=== PATIENT | female | born 2000 | race Caucasian/White ===

== ENCOUNTER 2022-08-01 08:00 | Outpatient (CLI) | payer MEDICAID ==
[2022-08-01 16:30] LABS: BILIRUBIN,URINE NEGATIVE (NEGATIVE); GLUCOSE, URINE (UA) NEGATIVE (NEGATIVE); KETONES,URINE (UA) NEGATIVE (NEGATIVE); LEUKOCYTE ESTERASE, URINE NEGATIVE (NEGATIVE); NITRITE,URINE NEGATIVE (NEGATIVE); OCCULT BLOOD,URINE NEGATIVE (NEGATIVE); PROTEIN,URINE NEGATIVE (NEGATIVE); UROBILINOGEN,URINE 0.2 (NORMAL) E.U./dL (NORMAL)
[2022-08-01 16:31] LABS: CLARITY,URINE CLEAR (CLEAR)
[2022-08-01 16:50] LABS: BACTERIA,URINE Few /HPF (None Seen); RBC,URINE 0-5 /HPF (0-5); SQUAMOUS EPITHELIAL CELL,UR MOD Squamous (<= Few); WBC,URINE 0-3 /HPF (0-5)
== END 2022-08-01 23:59 | disposition home or self-care (01) ==
LOC: LAB.WC 08:00
PROVIDERS: ATTEND Nurse Practitioner
DX: Z34.90 Encounter for supervision of normal pregnancy, unspecified, unspecified trimester (principal)
CPT/HCPCS: 81001; 87086

== ENCOUNTER 2022-08-01 12:38 | Outpatient (CLI) | payer MEDICAID ==
[2022-08-01 12:59] LABS: BASOPHILS # (AUTO) 0.1 10^3/uL (0.0-0.1); BASOPHILS % (AUTO) 0.5 %; EOSINOPHILS # (AUTO) 0.1 10^3/uL (0.0-0.7); EOSINOPHILS % (AUTO) 0.9 %; HCT - HEMATOCRIT 36.7 % (37.0-47.0); HGB - HEMOGLOBIN 12.6 g/dL (12.0-16.0); LYMPHOCYTES # (AUTO) 1.6 10^3/uL (1.5-3.5); LYMPHOCYTES % (AUTO) 15.2 %; MEAN CORPUSCULAR HEMOGLOBIN 29.9 pg (27.0-31.0); MEAN CORPUSCULAR HGB CONC 34.3 g/dL (32.0-36.0); MEAN PLATELET VOLUME 10.9 fL (7.9-10.8); MONOCYTES # (AUTO) 0.8 10^3/uL (0.0-1.0); MONOCYTES % (AUTO) 7.1 %; NEUTROPHILS % (AUTO) 75.7 %; PLT - PLATELET COUNT 268 10^3/uL (130-450); RED BLOOD COUNT 4.22 10^6/uL (4.20-5.40); WHITE BLOOD COUNT 10.5 x10^3/uL (4.8-10.8)
[2022-08-02 04:09] LABS: HBsAG SCREEN Negative (Negative); RPR Non Reactive (Non Reactive)
[2022-08-02 05:09] LABS: HCV AB <0.1 s/co ratio (0.0-0.9)
[2022-08-02 08:09] LABS: VARICELLA-ZOSTER AB IGG <135 index (Immune >165)
[2022-08-03 06:08] LABS: HIV SCREEN 4TH GENERATION Non Reactive (Non Reactive)
== END 2022-08-01 12:39 | disposition home or self-care (01) ==
LOC: LAB 12:38
PROVIDERS: ATTEND Nurse Practitioner
DX: Z34.90 Encounter for supervision of normal pregnancy, unspecified, unspecified trimester (principal)
CPT/HCPCS: 36415; 85025; 86592; 86762; 86787; 86803; 86850; 86900; 86901; 87340; 87389

== ENCOUNTER 2022-09-05 19:45 | Outpatient (CLI) | payer MEDICAID ==
[2022-09-05 20:06] VITALS: BP 105/60
--- NOTE | 2022-09-05 20:52 | HISTORY & PHYSICAL EXAMINATION ---
Admit History - Visit Reason Visit Reason: Bleeding - mild - : 1 Parity: 0 Care: positive: IW (Patient has only had one appointment. She no showed anatomy ultrasound and follow-up.) Risk/History: positive: No care (patient has had one appointment) - Mother's Labs Mother's RH: positive: Positive Review of Systems - Gastrointestinal Gastrointestinal: denies: Abdominal pain - Genitourinary Genitourinary: denies: Dysuria - All Other Systems All Other Systems: reports: Reviewed and negative Physical - Abdominal Exam Vital Signs: Temp Pulse Resp BP Pulse Ox O2 Flow Rate 98.1 F 88 16 105/60 09/05/22 20:01 09/05/22 20:01 09/05/22 20:01 09/05/22 20:01 - Monitoring Heart Rate Baseline: heart tones: 140 - Presentation Presentation: positive: Vertex - Vaginal Exam Membranes: positive: Membranes intact - Other Notes Labor Progress Note/Additional Text: Bedside ultrasound: cephalic presentation, anterior placenta away from cervix, heart tones 140 femur length ~24 weeks Speculum exam: no vaginal bleeding, normal appearing cervix, closed on exam Plan for Labor - Plan For Labor Plan for Labor: Patient is a 21 yo within unknown LMP and gestational age. Patient had one appointment at about 18 weeks. She has not presented for follow up appointments or to schedule her anatomy ultrasound. She presented with vaginal bleeding after intercourse. No bleeding on exam. Bedside ultrasound is normal with no evidence of previa. 1. vaginal bleeding in 2nd trimester -secondary to intercourse, resolved - wellbeing is reassuring- too early for NST 2. limited care -counseled patient to call the office on Thursday and schedule anatomy ultrasound and appointment. Patient is going to senior living 10[facility]06/21. Advised that it is important to have ultrasound done prior to this time and likely will need 28 weeks labs prior to incarceration. Advised patient to return for abdominal pain, vaginal bleeding, leakage of fluid or any other concerns.
== END 2022-09-05 21:05 | disposition home or self-care (01) ==
LOC: WFO 19:45 → FBP 19:49 → WFO 21:05
PROVIDERS: ATTEND Obstetrics & Gynecology Obstetrics
DX: O46.8X2 Other antepartum hemorrhage, second trimester (principal)
CPT/HCPCS: 99213; 99214

== ENCOUNTER 2022-09-12 08:00 | Outpatient (CLI) | payer MEDICAID ==
[2022-09-12 23:56] LABS: CHLAMYDIA TRACHOMATIS DNA NEGATIVE (NEGATIVE); NEISSERIA GONORRHOEAE DNA NEGATIVE (NEGATIVE); TRICHOMONAS VAGINALIS DNA NEGATIVE (NEGATIVE)
== END 2022-09-12 23:59 | disposition home or self-care (01) ==
LOC: LAB.WC 08:00
PROVIDERS: ATTEND Obstetrics & Gynecology
DX: Z34.90 Encounter for supervision of normal pregnancy, unspecified, unspecified trimester (principal)
CPT/HCPCS: 87491; 87591; 87661

== ENCOUNTER 2022-09-25 13:07 | Outpatient (CLI) | payer MEDICAID ==
--- NOTE | 2022-09-26 10:10 | Ultrasound Report ---
PROCEDURE: OB Detailed Eval INDICATIONS: SUPERVISION OF OUTSIDE/PRIOR DATING DATA: Last menstrual period (LMP): Unknown. LMP-based estimated date of delivery (TRUDY): Unknown. First dating scan (date and location): 09/25/2022. Estimated date of delivery (TRUDY) from first dating scan: 01/02/2023. The below data below was generated using the study generated TRUDY of 01/02/2023 TECHNIQUE: Real-time scanning was performed of the fetus, with image documentation and biometric measurements. Endovaginal scanning: Not indicated COMPARISON: None. FINDINGS: General: A single living intrauterine gestation is present. Presentation: Vertex Placenta: Placental position is anterior, without previa. Amniotic fluid index: 14.2 cm, normal for gestational age. heart rate: 158 beats per minute. Maternal cervical canal: 4.8 cm long and is closed; normal length is 2.5 cm or more. biometrics: Biparietal diameter: 6.2 cm, 25 weeks, 2 days. Head circumference: 23.78 cm, 25 weeks, 6 days. Abdominal circumference: 22.6 cm, 27 weeks, 0 day. Femur length: 4.48 cm, 24 weeks, 5 days. Estimated gestational age from initial scan: not applicable. Composite gestational age from present scan: 25 weeks, 6 days Estimated weight and percentile: 882.6 g. Measurement variability in biometric dating: +/- 10 days from 12-20 weeks gestation, +/- 2 weeks from 20-30 weeks gestation, +/- 3 weeks at 30 weeks gestation or later. Anatomic survey: Neuro: Ventricles are normal at less than 10 mm. Cisterna magna is normal at 3-11 mm. Cerebellum i s normal in size and morphology. Nuchal skin fold: Normal at less than 6 mm between 14 and 20 weeks gestational age. Face: Nose and lips, facial profile are not well seen due to position. Spine: No evidence for spina bifida. Heart: 4-chambered heart is present, with normal ventricular outflow tracts. Diaphragm: Diaphragm is intact. Stomach: Left-sided stomach is present. Kidneys: No hydronephrosis. Normal is less than 5 mm in 2nd trimester, less than 7 mm in 3rd trimester. Cord: 3 vessel cord has orthotopic insertion. Bladder: Normal in size. Extremities: All 4 extremities are visualized. IMPRESSION: 1. Single live intrauterine gestation with fetus in vertex presentation. heart rate is 158 bpm. Normal amount of amniotic fluid. Estimated gestational age is 25 weeks, 6 days. Estimated weig ht is at 882.6 g. 2. Facial profile is suboptimally seen due to position. Rest of the anatomic survey is wi thin normal limits. Reviewed by: James Maldonado MD on 09/26/2022 10:08 AM [facility] Approved by: James Maldonado MD on 09/26/2022 10:08 AM PST Station ID: [id number]
== END 2022-09-25 13:08 | disposition home or self-care (01) ==
LOC: DI 13:07
PROVIDERS: ATTEND Nurse Practitioner
DX: Z34.92 Encounter for supervision of normal pregnancy, unspecified, second trimester (principal)

== ENCOUNTER 2022-12-18 15:20 | Outpatient (CLI) | payer MEDICAID ==
[2022-12-18 15:42] VITALS: BP 104/71
--- NOTE | 2022-12-18 16:48 | PROVIDER PROGRESS NOTE ---
- HPI Chief Complaint: Other ( tachycardia in clinic) Current : Vital Signs Temperature 98.8 F 12/18/22 15:29 Heart Rate 100 12/18/22 15:29 Respiratory Rate 16 12/18/22 15:29 Blood Pressure 104/71 12/18/22 15:29 Temperature 98.8 F 12/18/22 15:29 Heart Rate 100 12/18/22 15:29 Respiratory Rate 16 12/18/22 15:29 Blood Pressure 104/71 12/18/22 15:29 O2 Saturation If not protocol: Oxygen Flow, liters/minute - Procedures OB Procedure Performed: NST NST Procedure: NST Procedure Start Date 12/18/22 Start Time 16:20 Stop Time 16:45 Vibroacoustic Stimulation Used No Patient States Movement Yes FHT: 130 beats per baseline, regularly, accelerations present, no decelerations. Reactive NST. [place]: Occasional irritability, no contractions Service Date of procedure: 12/18/22 (Read 12/18/22) - Plan Plan: Patient is a 22-year-old G1, P0 at 37 weeks 6 days gestation presenting to triage for tachycardia in clinic. She has good movement, no leaking, no vaginal bleeding. She denies headache, right upper quadrant pain, changes in vision. Patient has history of insufficient care due to incarceration. Physical Exam Constitutional: alert, no acute distress, well hydrated, well developed, well nourished, appropriate dress. Cardiovascular: Regular rate and rhythm. Respiratory: no respiratory distress. Abdomen: nondistended, nontender, no guarding. Psych: affect and mood appropriate, normal interaction, good eye contact. Assessment and plan 22-year-old at 37 weeks 6 days gestation with tachycardia. 1. tachycardia - tachycardia from clinic is no longer present. This is reactive and moving well. 2. History of incarceration 3. Limited care 4. 37 weeks gestation -Due for routine GC/CT screen 5. Uterine irritability -UA collected. Will follow up outpatient.
[2022-12-18 17:32] LABS: BILIRUBIN,URINE NEGATIVE (NEGATIVE); GLUCOSE, URINE (UA) NEGATIVE (NEGATIVE); KETONES,URINE (UA) NEGATIVE (NEGATIVE); LEUKOCYTE ESTERASE, URINE TRACE (NEGATIVE); NITRITE,URINE NEGATIVE (NEGATIVE); OCCULT BLOOD,URINE NEGATIVE (NEGATIVE); PH,URINE 6.5 PH (5.0-7.5); PROTEIN,URINE TRACE mg/dL (NEGATIVE); UROBILINOGEN,URINE 0.2 (NORMAL) E.U./dL (NORMAL)
[2022-12-18 17:41] LABS: BACTERIA,URINE Many /HPF (None Seen); CLARITY,URINE HAZY (CLEAR); MUCUS,URINE Few Strands; RBC,URINE 0-5 /HPF (0-5); SQUAMOUS EPITHELIAL CELL,UR MANY Squamous (<= Few)
[2022-12-19 00:31] LABS: CHLAMYDIA TRACHOMATIS DNA NEGATIVE (NEGATIVE); NEISSERIA GONORRHOEAE DNA NEGATIVE (NEGATIVE); TRICHOMONAS VAGINALIS DNA NEGATIVE (NEGATIVE)
== END 2022-12-18 16:50 | disposition home or self-care (01) ==
LOC: WFO 15:20 → FBP 15:22 → WFO 16:50
PROVIDERS: ATTEND Obstetrics & Gynecology
DX: O36.8330 Maternal care for abnormalities of the fetal heart rate or rhythm, third trimester, not applicable or unspecified (principal); O99.891 Other specified diseases and conditions complicating pregnancy; N85.9 Noninflammatory disorder of uterus, unspecified; Z3A.37 37 weeks gestation of pregnancy
CPT/HCPCS: 59025; 81001; 87086; 87491; 87591; 87661; 99215

== ENCOUNTER 2022-12-19 14:30 | Outpatient (CLI) | payer MEDICAID | END 2022-12-19 23:59 | disposition home or self-care (01) | LOC: LAB.R 14:30 | PROVIDERS: ATTEND Obstetrics & Gynecology | DX: Z36.85 Encounter for antenatal screening for Streptococcus B (principal) | CPT/HCPCS: 87797 ==

== ENCOUNTER 2022-12-26 13:50 | Inpatient (IN) | payer MEDICAID ==
[2022-12-26] MEDS ORDERED: SODIUM CHLORIDE FLUSH 0.9% 10 ML SYRINGE IVP PRN (14:31)
[2022-12-26] MEDS ORDERED: miSOPROStoL 200 MCG TABLET BC PRN (14:31)
[2022-12-26] MEDS ORDERED: CARBOPROST TROMETHAMINE 250 MCG/ML AMP IM PRN (14:31)
[2022-12-26] MEDS ORDERED: hydrALAZINE INJ 20 MG/ML VIAL IVP PRN ×2 (14:31)
[2022-12-26] MEDS ORDERED: OXYTOCIN 10 UNIT/ML VIAL IM PRN (14:31)
[2022-12-26] MEDS ORDERED: TRANEXAMIC ACID IN NACL 1,000 MG/100 ML BAG IV PRN (14:31)
[2022-12-26] MEDS ORDERED: NIFEdipine 10 MG CAPSULE PO PRN (14:31)
[2022-12-26] MEDS ORDERED: fentaNYL 100 MCG/2 ML VIAL IVP PRN (14:31)
[2022-12-26] MEDS ORDERED: LABETALOL 20 MG/4 ML SYRINGE IVP PRN ×3 (14:31)
[2022-12-26] MEDS ORDERED: METHYLERGONOVINE 0.2 MG/ML VIAL IM PRN (14:31)
[2022-12-26] MEDS ORDERED: OXYTOCIN/SODIUM CHLORIDE 500 ML IV PRN (14:31)
[2022-12-26] MEDS ORDERED: miSOPROStoL 200 MCG TABLET PR PRN (14:31)
[2022-12-26] MEDS ORDERED: lidocaine 1% 20 ML MDV ID PRN (14:31)
--- NOTE | 2022-12-26 14:38 | HISTORY & PHYSICAL EXAMINATION ---
Admit History - Visit Reason Visit Reason: Contractions - : 1 Parity: 0 Care: positive: [facility] Risk/History: positive: Other (insufficient care) Complications This : positive: Maternal drug use (marijuana) - Mother's Labs Mother's Blood Type: positive: O Mother's RH: positive: Negative GBS: positive: Group B Step Negative Rubella Status: positive: Immune Meds/Allgy - Allergies Allergies/Adverse Reactions: Allergies Allergy/AdvReac Type Severity Reaction Status Date / Time No Known Drug Allergies Allergy Verified 09/05/22 21:03 Review of Systems - Cardiovascular Cariovascular: denies: Chest pain - All Other Systems All Other Systems: reports: Reviewed and negative Physical - Abdominal Exam Vital Signs: Temp Pulse Resp BP Pulse Ox O2 Flow Rate 98.2 F 67 18 126/76 12/26/22 14:05 12/26/22 14:05 12/26/22 14:05 12/26/22 14:05 Contraction Frequency (min/apart): contractions every 3-5 minutes Contraction Intensity: positive: Moderate to strong Uterine Resting Tone: positive: Soft - Monitoring Strip Review: positive: Category I - Presentation Presentation: positive: Vertex - Vaginal Exam Membranes: positive: Membranes intact Dilation (in cm): 4 Effacement (%): 50 Station: positive: -2 Cervical Position: positive: Midposition - Speculum Exam Speculum Exam Performed: positive: No Plan for Labor - Plan For Labor Plan for Labor: 1. admit to labor and delivery for management of labor 2. discussion labor management and pain management, all questions answered
[2022-12-26] MEDS ORDERED: ONDANSETRON 4 MG/2 ML VIAL IVP PRN ×2 (14:43→16:57)
[2022-12-26] MEDS ORDERED: SODIUM CHLORIDE FLUSH 0.9% 10 ML SYRINGE IVP SCH (15:00)
[2022-12-26] MEDS ORDERED: LACTATED RINGERS 1,000 ML ONE ×2 (15:17→22:05)
[2022-12-26] MEDS ORDERED: LACTATED RINGERS 500 ML IV ONE (16:00)
[2022-12-26 16:06] LABS: BASOPHILS # (AUTO) 0.1 10^3/uL (0.0-0.1); BASOPHILS % (AUTO) 0.7 %; EOSINOPHILS # (AUTO) 0.1 10^3/uL (0.0-0.7); EOSINOPHILS % (AUTO) 1.4 %; HGB - HEMOGLOBIN 10.7 g/dL (12.0-16.0); LYMPHOCYTES # (AUTO) 1.4 10^3/uL (1.5-3.5); LYMPHOCYTES % (AUTO) 14.7 %; MEAN CORPUSCULAR HEMOGLOBIN 24.5 pg (27.0-31.0); MEAN CORPUSCULAR HGB CONC 31.5 g/dL (32.0-36.0); MEAN CORPUSCULAR VOLUME 77.8 fL (81.0-99.0); MONOCYTES # (AUTO) 0.9 10^3/uL (0.0-1.0); MONOCYTES % (AUTO) 9.7 %; NEUTROPHILS # (AUTO) 6.8 10^3/uL (1.5-6.6); NEUTROPHILS % (AUTO) 71.5 %; PLT - PLATELET COUNT 133 10^3/uL (130-450); RED BLOOD COUNT 4.37 10^6/uL (4.20-5.40); RED CELL DISTRIBUTION WIDTH 14.4 % (12.0-15.0); WHITE BLOOD COUNT 9.5 x10^3/uL (4.8-10.8)
[2022-12-26] MEDS ORDERED: ROPIVACAINE 0.2% 200 MG/100 ML BAG EP ONE (16:10)
[2022-12-26] MEDS ORDERED: LIDOCAINE MPF 2%-EPI 1:200000 20 ML VIAL ONE (16:22)
[2022-12-26] MEDS ORDERED: ePHEDrine 50 MG/ML VIAL IVP PRN (16:57)
[2022-12-26] MEDS ORDERED: METOCLOPRAMIDE 10 MG/2 ML VIAL IVP PRN (16:57)
[2022-12-26] MEDS ORDERED: NALOXONE 0.4 MG/ML VIAL IVP PRN (16:57)
[2022-12-26] MEDS ORDERED: diphenhydrAMINE INJ 50 MG/ML VIAL IVP PRN (16:57)
[2022-12-26] MEDS ORDERED: NALBUPHINE 10 MG/ML AMP IVP PRN (16:57)
[2022-12-26] MEDS ORDERED: LACTATED RINGERS 1,000 ML IV SCH ×2 (17:00→23:45)
--- NOTE | 2022-12-26 17:00 | ANESTHESIA ---
Pre-Anesthesia VS, & Labs - Diagnosis active labor - Procedure labor epidural Vital Signs: Temp Pulse Resp BP Pulse Ox O2 Flow Rate 36.8 C 67 18 126/76 12/26/22 14:53 12/26/22 14:05 12/26/22 14:05 12/26/22 14:05 Height: 5 ft 7 in Weight (kg): 74.843 kg Body Mass Index: 25.8 BMI Classification: Overweight - NPO Other - Is Patient ?: Yes - Lab Results Current Lab Results: Laboratory Tests 12/26/22 15:40: WBC 9.5, RBC 4.37, Hgb 10.7 L, Hct 34.0 L, MCV 77.8 L, MCH 24.5 L, MCHC 31.5 L, RDW 14.4, Plt Count 133, Neut # (Auto) 6.8 H, Lymph # (Auto) 1.4 L, [place] # (Auto) 0.9, Eos # (Auto) 0.1, Baso # (Auto) 0.1, Absolute Nucleated RBC 0.00, Nucleated RBC % 0.0 12/26/22 15:40: Blood Type O NEGATIVE, Antibody Screen POSITIVE Fish Bones: 12/26/22 15:40 Home Medications and Allergies Active Medications Carboprost Tromethamine (Carboprost Tromethamine 250 Mcg/Ml Amp) 250 mcg IM .ONCE PRN PRN Reason: Hemorrhage Fentanyl (Fentanyl 100 Mcg/2 Ml Vial) 50 mcg IVP Q1H PRN PRN Reason: Severe Pain (score 7-10) Hydralazine HCl (Hydralazine Inj 20 Mg/Ml Vial) 5 - 10 mg IVP Q20M PRN; Pro tocol PRN Reason: SBP> or= 160 OR DBP> or= 110 Hydralazine HCl (Hydralazine Inj 20 Mg/Ml Vial) 10 mg IVP .ONCE PRN; Protocol PRN Reason: SBP> or= 160 OR DBP> or= 110 Oxytocin/Sodium Chloride (Pitocin/Sodium Chloride) 500 mls @ 999 mls/hr IV PRN PRN; Protocol PRN Reason: POST- HEMORR PREVENTION Tranexamic Acid (Tranexamic 1,000 Mg/100ml-Nacl) 1,000 mg in 100 mls @ 600 mls/hr IV Q30M PRN PRN Reason: EBL >1200mL and within 3hr Labetalol HCl (Labetalol 20 Mg/4 Ml Syringe) 20 - 80 mg IVP Q10M PRN; Protocol PRN Reason: SBP> or= 160 OR DBP> or= 110 Labetalol HCl (Labetalol 20 Mg/4 Ml Syringe) 20 mg IVP .ONCE PRN; Protocol PRN Reason: SBP> or= 160 OR DBP> or= 110 Labetalol HCl (Labetalol 20 Mg/4 Ml Syringe) 20 - 40 mg IVP Q10M PRN; Protocol PRN Reason: SBP> or= 160 OR DBP> or= 110 Lidocaine HCl (Lidocaine 1% 20 Ml Mdv) 20 ml ID .ONCE PRN PRN Reason: PERINEAL REPAIR Stop: 12/29/22 14:31 Methylergonovine Maleate (Methylergonovine 0.2 Mg/Ml Vial) 0.2 mg IM .ONCE PRN PRN Reason: Hemorrhage Misoprostol (Misoprostol 200 Mcg Tablet) 600 mcg BC .ONCE PRN PRN Reason: Hemorrhage Misoprostol (Misoprostol 200 Mcg Tablet) 800 mcg MT .ONCE PRN PRN Reason: Hemorrhage Nifedipine (Nifedipine 10 Mg Capsule) 10 - 20 mg PO Q20M PRN; Protocol PRN Reason: SBP> or= 160 OR DBP> or= 110 Ondansetron HCl (Ondansetron 4 Mg/2 Ml Vial) 4 mg IVP Q4HR PRN PRN Reason: Nausea / Vomiting Oxytocin (Oxytocin 10 Unit/Ml Vial) 10 unit IM .ONCE PRN PRN Reason: Step One if no IV access. Sodium Chloride (Sodium Chloride Flush 0.9% 10 Ml Syringe) 10 ml IVP PRN PRN PRN Reason: NEEDED PER PROVIDER ORDERS Sodium Chloride (Sodium Chloride Flush 0.9% 10 Ml Syringe) 10 ml IVP Q8H [facility] Allergies/Adverse Reactions: Allergies Allergy/AdvReac Type Severity Reaction Status Date / Time No Known Drug Allergies Allergy Verified 09/05/22 21:03 Anes History & Medical History - Anesthetic History Anesthesia Complications: reports: No previous complications Family history of Anesthesia Complications: Denies Family history of Malignant Hyperthermia: Denies - Medical History Pulmonary: reports: Asthma Musculoskeletal: reports: Scoliosis Smoking Status: Former smoker Psychosocial: reports: Cannabis History of Cancer?: No - Obstetrical History : 1 Parity: 0 Events: reports: Other (insufficient care) Complications: reports: Maternal drug use (marijuana) Exam General: Alert, Oriented x3, Cooperative, Moderate distress Dental: WNL Mouth Openin Fingerbreadth Neck Mobility: Normal Mallampati classification: I Thyromental Distance: 4-6 cm Respiratory: Lungs clear Cardiovascular: Regular rate Plan Anesthesia Type: Epidural Consent for Procedure(s) Verified and Reviewed: Yes Code Status: Attempt Resuscitation ASA classification: 3-Severe systemic disease Is this case an emergency?: No
--- NOTE | 2022-12-26 17:30 | PROVIDER PROGRESS NOTE ---
Labor Progress Note - Uterine Monitoring Uterine Monitoring Mode: positive: External toco Contraction Frequency (min/apart): every 3-4 minutes Contraction Intensity: positive: Strong - Monitoring Monitor Mode: positive: External ultrasound Heart Rate Variability: positive: Moderate (6-25 bmp) Accelerations: positive: Present, 15x15 Decelerations: positive: None Strip Review: positive: Category I - Vaginal Exam Dilation (in cm): 7 Effacement (%): 80 Station: -2 (AROM with clear fluid. Patient comfortable with epidural)
[2022-12-26 20:27] LABS: MUDS CUTOFF CONCENTRATIONS CUTOFF CONC BELOW:
[2022-12-26 20:42] LABS: AMPHETAMINE SCREEN,URINE NEGATIVE (NEGATIVE); BARBITURATE SCREEN,UR NEGATIVE (NEGATIVE); BENZODIAZEPINES SCREEN, URINE NEGATIVE (NEGATIVE); COCAINE SCREEN URINE NEGATIVE (NEGATIVE); METHADONE SCREEN, URINE NEGATIVE (NEGATIVE); METHAMPHETAMINES SCREEN, URINE NEGATIVE (NEGATIVE); OPIATE SCREEN, URINE NEGATIVE (NEGATIVE); OXYCODONE SCREEN, URINE NEGATIVE (NEGATIVE); PROPOXYPHENE SCREEN, URINE NEGATIVE (NEGATIVE); THC CANNABINOID SCREEN, URINE POSITIVE (NEGATIVE); TRICYCLIC ANTIDEPRESSANT,URINE NEGATIVE (NEGATIVE)
--- NOTE | 2022-12-26 23:08 | DELIVERY NOTE ---
Delivery Note - Labor Labor: positive: Spontaneous - Delivery Method Delivery Method: positive: Spontaneous vaginal delivery - Presentation Presentation: positive: Vertex - Nuchal Cord Nuchal Cord: positive: None - Anesthetic Anesthetic Type: - Amniotic Fluid Description Amniotic Fluid Description: positive: Moderate meconium - Episiotomy Type Episiotomy Type: positive: None - Laceration Laceration: positive: 1st degree (superficial skid pedro repaired with 3-0 vicryl) - Suture Suture Type: positive: Vicryl Suture Size: positive: 3-0 - Delivery Outcome Delivery Outcome: positive: Livebirth - : positive: Placed in direct skin contact with mother, Suctioned, Bulb syringe, Stimulated, Warmed, [place] used [place] sex: positive: Female - Cord Cord: positive: 3 vessels - Placenta Placenta: positive: Intact, Spontaneous - Estimated Blood Loss Estimated Blood Loss (in cc): 150 - Post Delivery Events Post Delivery Events: positive: No post delivery events
[2022-12-27] MEDS: IBUPROFEN 800 MG TABLET PO SCH ×5 (02:40→22:51)
[2022-12-27] MEDS ORDERED: WITCH HAZEL/GLYCERIN 1 PAD TOP PRN (02:51)
[2022-12-27] MEDS: ACETAMINOPHEN 500 MG TABLET PO SCH ×2 (08:33→16:46)
[2022-12-27] MEDS: DOCUSATE SODIUM 100 MG CAPSULE PO SCH ×2 (08:34→22:52)
--- NOTE | 2022-12-27 11:08 | PROVIDER PROGRESS NOTE ---
Subjective - Prog Note Date Prog Note Date: 12/27/22 Prog Note Time: 11:06 - Subjective Pt reports feeling: Improved Subjective: Patient doing well this morning. Lochia < menses. Ambulating, tolerating regular diet. Spontaneously voiding. Objective - Vital Signs/Intake & Output Reviewed Vital Signs: Yes Vital Signs: Vital Signs x48h Temp Pulse Resp BP 12/27/22 07:56 98.4 F 59 L 16 131/87 H Intake & Output: Intake & Output 12/24/22 12/25/22 12/26/22 12/27/22 23:59 23:59 23:59 23:59 Intake Total 858.183 87.5 Output Total 625 631 Balance 233.183 -543.5 - Objective General Appearance: positive: No acute distress Eyes Bilateral: positive: Normal inspection Respiratory: positive: Breath sounds nml Cardiovascular: positive: Regular rate & rhythm Abdomen: positive: Non-tender (firm fundus below umbilicus) Skin: positive: Color nml Extremities: positive: Non-tender, Pedal edema (trace) - Lab Results Fish Bones: 12/26/22 15:40 Other Labs: Lab Results x24hrs 12/26/22 12/26/22 12/26/22 Range/Units 20:05 15:40 15:40 WBC 9.5 (4.8-10.8) x10^3/uL RBC 4.37 (4.20-5.40) 10^6/uL Hgb 10.7 L (12.0-16.0) g/dL Hct 34.0 L (37.0-47.0) % MCV 77.8 L (81.0-99.0) fL MCH 24.5 L (27.0-31.0) pg MCHC 31.5 L (32.0-36.0) g/dL RDW 14.4 (12.0-15.0) % Plt Count 133 (130-450) 10^3/uL Neut # (Auto) 6.8 H (1.5-6.6) 10^3/uL Lymph # (Auto) 1.4 L (1.5-3.5) 10^3/uL [place] # (Auto) 0.9 (0.0-1.0) 10^3/uL Eos # (Auto) 0.1 (0.0-0.7) 10^3/uL Baso # (Auto) 0.1 (0.0-0.1) 10^3/uL Absolute Nucleated RBC 0.00 x10^3/uL Nucleated RBC % 0.0 /100WBC Urine Opiates Screen NEGATIVE (NEGATIVE) Ur Oxycodone Screen NEGATIVE (NEGATIVE) Urine Methadone Screen NEGATIVE (NEGATIVE) Ur Propoxyphene Screen NEGATIVE (NEGATIVE) Ur Barbiturates Screen NEGATIVE (NEGATIVE) Ur Tricyclics Screen NEGATIVE (NEGATIVE) Ur Phencyclidine Scrn NEGATIVE (NEGATIVE) Ur Amphetamine Screen NEGATIVE (NEGATIVE) U Methamphetamines Scrn NEGATIVE (NEGATIVE) U Benzodiazepines Scrn NEGATIVE (NEGATIVE) Urine Cocaine Screen NEGATIVE (NEGATIVE) U Cannabinoids Screen POSITIVE H (NEGATIVE) Blood Type O NEGATIVE Antibody Screen POSITIVE Antibody Identification See Comments SHELLY, IgG Specific TNP SHELLY, Polyspecific NEGATIVE SHELLY, C3d Specific TNP Crossmatch See Detail Assessment/Plan - Problem List (1) Vaginal delivery Impression: PPD#1 Uncomplicated course RH negative, follow up on baby's blood type Anticipate home tomorrow.
[2022-12-28] MEDS: ACETAMINOPHEN 500 MG TABLET PO SCH ×2 (00:46→09:04)
[2022-12-28] MEDS: IBUPROFEN 800 MG TABLET PO SCH ×2 (04:43→10:51)
[2022-12-28] MEDS: DOCUSATE SODIUM 100 MG CAPSULE PO SCH (09:04)
[2022-12-28 09:18] VITALS: BP 134/79
--- NOTE | 2022-12-28 09:54 | Discharge Plan ---
Discharge Plan Problem Reviewed?: Yes Disposition: Home, Self Care Diet: Regular Activity Restrictions: pelvic rest for 6 weeks No Smoking: If you smoke, Please STOP! Call for help. Follow-up with: Melisa Pino MD [Primary Care Provider] -
--- NOTE | 2022-12-28 09:56 | DISCHARGE SUMMARY ---
Discharge Summary Admit Date: 12/26/22 Discharge Date: 12/28/22 Discharging Provider: Odette Primary Care Provider: Jonny Code Status: Attempt Resuscitation Discharge Disposition: 01 Home, Self Care - DIAGNOSES Admission Diagnoses: Full term , in labor - HPI History of Present Illness: Patient presented in labor. She was given an epidural for pain management. Patient had an uncomplicated and an uncomplicated course and was discharged to home on PPD#2. - HOSPITAL COURSE Hospital Course: Patient presented in labor. She had an uncomplicated and an uncomplicated course and was discharged to home on PPD#2 - ALLERGIES Allergies/Adverse Reactions: Allergies Allergy/AdvReac Type Severity Reaction Status Date / Time No Known Drug Allergies Allergy Verified 09/05/22 21:03 - PHYSICAL EXAM AT DISCHARGE General Appearance: positive: No acute distress Respiratory: positive: Breath sounds nml Cardiovascular: positive: Regular rate & rhythm Abdomen: positive: Non-tender (firm fundus below umbilicus) Skin: positive: Color nml - LABS Result Diagrams: 12/26/22 15:40 - FOLLOW UP Follow Up: Follow up with Dr. Fuller on
--- NOTE | 2022-12-28 09:59 | PROVIDER PROGRESS NOTE ---
Subjective - Prog Note Date Prog Note Date: 12/28/22 - Subjective Subjective: Patient is PPD#2 s/p Patient is doing well. Ambulating, spontaneously voiding, tolerating regular diet. lochia < menses Objective - Vital Signs/Intake & Output Reviewed Vital Signs: Yes Vital Signs: Vital Signs x48h Temp Pulse Resp BP Pulse Ox 12/28/22 09:17 98.2 F 64 19 134/79 H 99 12/28/22 04:35 98.4 F 57 L 16 125/85 H 99 Intake & Output: Intake & Output 12/25/22 12/26/22 12/27/22 12/28/22 23:59 23:59 23:59 23:59 Intake Total 858.183 950.15 Output Total 625 631 Balance 233.183 319.15 - Objective General Appearance: positive: No acute distress Respiratory: positive: No respiratory distress, Breath sounds nml Cardiovascular: positive: Regular rate & rhythm Abdomen: positive: Non-tender (firm fundus below umbilicus) Extremities: positive: Non-tender - Lab Results Fish Bones: 12/26/22 15:40 Assessment/Plan - Problem List (1) Vaginal delivery Impression: PPD#2 discharge to home pt Rh-, baby Rh- varicella non-immune, offered nexplanon on
[2022-12-28] MEDS ORDERED: VARICELLA VACCINE LIVE/PF 1,350 UNIT/0.5 ML VIAL SUBQ ONE (10:43)
--- NOTE | 2022-12-28 12:16 | Labor Flowsheet ---
Labor Flowsheet Datetime Report Generated by CPN: 12/28/2022 12:16 Datetime: 12/28/2022 08:54 VITAL SIGNS NBP Sys/Danna/Mean (mmHg): 134 : 79 : 91 Pulse: 68 LaborFlag: Labor Datetime: 12/28/2022 04:35 SpO2 (%): 100 Datetime: 12/26/2022 23:23 Membranes Ruptured Date/Time: 12/26/2022 17:17 Datetime: 12/26/2022 23:01 Vital Sign Comments: pt denies dizziness, lightheadedness or nausea at this time. Arm movement dur ing BP, will re take. Datetime: 12/26/2022 22:37 Patient Care Comments: pt pushing Datetime: 12/26/2022 22:30 UTERINE ACTIVITY Monitor Mode: External Monitor Interventions for UA: [place] Adjusted Frequency (min): 1.5-4.5 Quality: Strong Duration (sec): 50-90 Pattern: Normal: <= 5 Contractions in 10 Minutes Resting Tone (Palpate): Relaxed ASSESSMENT A Monitor Mode: External US Monitor Interventions for FHR: Ultrasound Adjusted FHR Baseline Rate : 130 Variability: Moderate 6-25 bpm Accelerations: 15X15 Decelerations: Early Category: Category I PATIENT CARE Oxygen Method: Room Air Datetime: 12/26/2022 22:24 Anesthesia Level Check: T5 COMMUNICATION Communication: Provider at Bedside Datetime: 12/26/2022 22:17 VAGINAL EXAM Dilatation (cm): 10.0 Station: 3 Exam by: A Bielefeld, RN Notification Reason: Status Update Communication Comments: Notified baby +3 station Requested to come for delivery Datetime: 12/26/2022 21:33 Patient Position/Activity: High Fowlers Datetime: 12/26/2022 21:00 Comments: intermittent periodic renetta decel x1 Datetime: 12/26/2022 20:50 Pain Presence: None/Denies Datetime: 12/26/2022 20:23 Provider Notified (Name): Dr Baltes Datetime: 12/26/2022 20:12 PAIN Pain Scale: 4 Pain Type: Contraction Pain Location: Abdomen Pain Goal: 5 Pain Assessment Comments: epidural pump just gave intermittent dose. Datetime: 12/26/2022 20:09 Effacement (%): 90 Vaginal Bleeding: Normal Show Cervix, Consistency: Soft Cervix, Position: Midposition Position 'A': Left Occipital Anterior Datetime: 12/26/2022 20:00 Temperature (C): 36.8 Datetime: 12/26/2022 19:35 Respirations: 18 Datetime: 12/26/2022 18:30 Contraction Comments: pt not feeling any contractions Datetime: 12/26/2022 17:23 I/O Interventions: Feliz Cath Inserted Datetime: 12/26/2022 17:17 Membrane Status: Ruptured Membranes Rupture Method: Artificial Amniotic Fluid Color: Clear Amniotic Fluid Amount: Small Amniotic Fluid Odor: Normal Membrane Comments: AROM by Dr. Pino Datetime: 12/26/2022 16:22 Epidural Procedure: Cath Placed Datetime: 12/26/2022 16:13 ANESTHESIA Epidural Positioning: Sitting Datetime: 12/26/2022 16:08 PROCEDURE TIME OUT Procedure Verify: Correct Patient Identity Datetime: 12/26/2022 16:05 Anesthesia Comments: Anesthesia here Datetime: 12/26/2022 15:20 Stage of : Labor (Annotations: assumed care of pt.) Comfort Measures: Hot Shower/Tub/Spa
== END 2022-12-28 12:14 | disposition home or self-care (01) | DRG 807 ==
LOC: WFO 13:50 → FBP 13:53 → WFO 14:30 → FBP 14:31
PROVIDERS: ADMIT Obstetrics & Gynecology Obstetrics; ATTEND Obstetrics & Gynecology Obstetrics
PROC: 10E0XZZ Delivery of Products of Conception, External Approach (ICD-10-PCS; principal; 2022-12-26)
PROC: 0HQ9XZZ Repair Perineum Skin, External Approach (ICD-10-PCS; 2022-12-26)
PROC: 10907ZC Drainage of Amniotic Fluid, Therapeutic from Products of Conception, Via Natural or Artificial Opening (ICD-10-PCS; 2022-12-26)
DX: O99.324 Drug use complicating childbirth (principal); Z37.0 Single live birth; F12.90 Cannabis use, unspecified, uncomplicated; O70.0 First degree perineal laceration during delivery; Z3A.00 Weeks of gestation of pregnancy not specified; O77.0 Labor and delivery complicated by meconium in amniotic fluid; Z87.891 Personal history of nicotine dependence
CPT/HCPCS: 80306; 85025; 86850; 86870; 86880; 86900; 86901; 86922; 90716; A9270; J7120; 86920; 99215

== ENCOUNTER 2023-08-09 20:51 | Emergency (ER) | payer MEDICAID, OTHER ==
[2023-08-09] MEDS ORDERED: BUFFERED LIDOCAINE 10 ML SYRINGE SUBQ STA (21:17)
[2023-08-09] MEDS ORDERED: TETANUS/DIPHTHERIA/PERTUSSIS 0.5 ML SYRINGE IM ONE (21:47)
--- NOTE | 2023-08-09 21:47 | ED Physician Documentation ---
History of Present Illness - Stated complaint Stated Complaint: L TOE INJ/R ARM LAC - Chief complaint Chief Complaint: General - History obtained from History obtained from: Patient - History of Present Illness Timing: Yesterday - Additonal information Additional information: 22-year-old female presents for evaluation of of left great toe pain and right forearm laceration. Patient states that since the of her child 7 months ago she has had intermittent "blackout" episodes where she will accidentally injure herself. She states that she does engage in self-harm as a coping mechanism. She states that last night she was scratching her forearm and excellently went too deep, causing a laceration in her right forearm. She adamantly denies trying to kill herself, she states that this is a stress relief mechanism for her and she accidentally went too far.She states that she does not want to be evaluated in the emergency department for these episodes but does intend to follow-up with her primary care physician for these episodes as they seem to be happening more frequently and her family is urging her to be evaluated. Review of Systems Constitutional: denies: Fever, Chills Cardiac: denies: Chest pain / pressure, Palpitations, Calf pain Respiratory: denies: Dyspnea, Cough, Wheezing GI: denies: Abdominal Pain, Nausea, Vomiting : denies: Dysuria, Frequency, Hesitancy PD PAST MEDICAL HISTORY - Past Medical History Past Medical History: Yes Respiratory: Asthma Musculoskeletal: Scoliosis - Past Surgical History Past Surgical History: No - Present Medications Home Medications: Ambulatory Orders Medication Instructions Recorded Confirmed Alprazolam [Xanax] 0.25 mg PO DAILY PRN 08/09/23 08/09/23 - Allergies Allergies/Adverse Reactions: Allergies Allergy/AdvReac Type Severity Reaction Status Date / Time No Known Drug Allergies Allergy Verified 08/09/23 21:05 - Social History Does the pt smoke?: Yes Smoking Status: Current every day smoker Does the pt drink ETOH?: No Does the pt have substance abuse?: No - Immunizations Immunizations are current?: Yes - POLST Patient has POLST: No PD ED PE NORMAL - Vitals Vital signs reviewed: Yes - General General: Alert and oriented X 3, No acute distress - HEENT HEENT: Atraumatic - Neck Neck: Supple, no meningeal sign - Cardiac Cardiac: RRR, Strong equal pulses - Respiratory Respiratory: No respiratory distress - Abdomen Abdomen: Soft - Derm Derm: Normal color, Warm and dry, Other (4cm linear laceration on inner R forearm. No exposed fascia, tendon, muscle, or vessels) - Extremities Extremities: Normal ROM s pain, Other (contusion/swelling L great toe) Results - Vitals Vitals: Vital Signs - 24 hr 08/09/23 08/09/23 08/09/23 20:55 21:52 23:15 Temperature 36.7 C Heart Rate 125 H 78 105 H Respiratory 17 15 16 Rate Blood Pressure 137/92 H 107/64 O2 Saturation 98 97 100 Oxygen O2 Source Room air Procedures - Laceration (location) Upper extremity right Ventral Length in cm: 4 Wound type: Linear, Clean Neurovascular status: Sensory intact, Motor intact, Vascular intact Tendon involvement: Tendon intact Anesthesia: Lidocaine 1% Wound preparation: Irrigated copiously NS, Wound explored, To the base Skin layer closure: Nylon, Running, Size #-0 - enter number (5), Sutures - enter # (1) Other: Patient tolerated well, No complications, Neurovascular intact, Dressing applied, Tetanus booster given PD Medical Decision Making - ED course Complexity details: reviewed old records, reviewed results, re-evaluated patient, considered differential, d/w patient ED course: Nontoxic patient with laceration and left great toe injury. Patient is adamant that she did not intend to harm herself and she feels safe at home. She states that she plans to follow-up with her primary care physician about these episodes as her family is becoming worried about them. Wound was repaired per procedure notes. There is possible a small chip fracture at the base of the left great toe. She was placed in candy tape and given a shoe to walk-in. Suture care instructions and wound care instructions discussed at bedside. Departure - Departure Disposition: 01 Home, Self Care Clinical Impression: Forearm laceration, Toe fracture Condition: Stable Instructions: ED Fx Foot, ED Laceration All Comments: Suture removal for the arm laceration in approximately 7 days. Keep the wound clean and dry and avoid soaking it in standing water. If you notice redness, drainage, swelling please come back for repeat evaluation as this could be a sign of infection. You did appear to have a great toe fracture. It will be placed in candy tape and this will allow it to help heal. You may wear the shoe provided for comfort if you would like. Take Tylenol and Motrin for pain and you may apply ice for swelling. Avoid sports or other contact physical activity until your toe heals in several weeks. Forms: PCP List Discharge Date/Time: 08/09/23 23:15
[2023-08-09 22:24] VITALS: BP 107/64
--- NOTE | 2023-08-09 22:38 | XRAY Report ---
PROCEDURE: Toe(s) LT INDICATIONS: pain, poss fx TECHNIQUE: 3 views of the left great toe(s) acquired. COMPARISON: None. FINDINGS: Bones: No dislocation. Small linear lucency involving the volar base of the left great toe distal pha lanx is noted only on the lateral view. There is overlying soft tissue swelling of the great toe. Thi s may represent a nondisplaced fracture. No suspicious bony lesions. Soft tissues: No suspicious soft tissue densities. IMPRESSION: Possible nondisplaced fracture involving the volar base of the left great toe distal phalanx. Reviewed by: Ranjan Moralez MD on 08/09/2023 10:37 PM PST Approved by: Ranjan Moralez MD on 08/09/2023 10:37 PM PST Station ID: [id number]
[2023-08-09 23:26] VITALS: O2SAT 100
== END 2023-08-09 23:15 | disposition home or self-care (01) ==
LOC: ED 20:51
DX: S51.811A Laceration without foreign body of right forearm, initial encounter (principal); S92.425A Nondisplaced fracture of distal phalanx of left great toe, initial encounter for closed fracture; X58.XXXA Exposure to other specified factors, initial encounter; F17.200 Nicotine dependence, unspecified, uncomplicated; Z23 Encounter for immunization
CPT/HCPCS: 12002; 73660; 90471; 99283